=== PATIENT | female | born 1970 | race African-American/Black ===

== ENCOUNTER 2017-08-25 13:53 | Emergency (ER) | payer OTHER ==
[~2017-08-25] VITALS: Ht 177.8 cm; Wt 81.6 kg
[2017-08-25 14:36] LABS: Basophils # (auto) 0 uL; Basophils % (auto) 0.5 % (0.0-2.0); Eosinophils # (auto) 0 uL; Eosinophils % (auto) 0.1 % (0.0-7.0); Hematocrit 38.3 % (36.0-46.0); Hemoglobin 12.7 g/dL (12.2-16.2); Lymphocytes # (auto) 1.3 uL; Lymphocytes % (auto) 13.9 % (10.0-50.0); Mean Corpuscular Hemoglobin 31.2 pg (28.0-32.0); Mean Corpuscular Hgb Conc. 33.2 g/dL (32.0-36.0); Monocytes # (auto) 0.7 uL; Monocytes % (auto) 7.1 % (0.0-12.0); Neutrophils # (auto) 7.5 uL; Neutrophils % (auto) 78.4 % (37.0-80.0); Platelet Count (auto) 276 10^3/uL (140-450); Red Blood Cells 4.07 10^6/uL (4.0-5.20); Red Cell Distribution Width 13.2 % (11.8-14.3); White Blood Cell 9.6 10^3/uL (4.4-10.8)
[2017-08-25] MEDS ORDERED: MORPHINE SULFATE 4 MG/ML SYR/VIAL IV ONE ×2 (15:00→20:30)
[2017-08-25] MEDS ORDERED: TETANUS-DIPTH-ACEL PERTUSSIS 0.5ML SYRG IM ONE (15:00)
[2017-08-25] MEDS ORDERED: ONDANSETRON HCL 4 MG/2 ML VIAL IV ONE ×3 (15:00→20:30)
[2017-08-25 15:12] LABS: Albumin 3.6 g/dL (3.4-5.0); BUN/Creatinine Ratio 13.6; Calcium 8.3 mg/dL (8.5-10.1); Potassium 3.4 mmol/L (3.5-5.1); Total Protein 6.8 g/dL (6.4-8.2)
[2017-08-25] MEDS ORDERED: HYDROmorphone HCL 2 MG/ML VL IV ONE (16:30)
[2017-08-26] MEDS ORDERED: HYDROmorphone HCL 2 MG/ML VL IV ONE
[2017-08-26] MEDS ORDERED: ONDANSETRON HCL 4 MG/2 ML VIAL IV ONE
[2017-08-26 00:27] VITALS: BP 136/75
== END 2017-08-26 00:57 | disposition short-term general hospital (02) ==
LOC: ER 13:53
DX: S62.512A Displaced fracture of proximal phalanx of left thumb, initial encounter for closed fracture (principal); S80.02XA Contusion of left knee, initial encounter; I47.2 Ventricular tachycardia; Z95.810 Presence of automatic (implantable) cardiac defibrillator; Z95.0 Presence of cardiac pacemaker; V86.56XA Driver of dirt bike or motor/cross bike injured in nontraffic accident, initial encounter; Y93.89 Activity, other specified; Y99.8 Other external cause status; Y92.89 Other specified places as the place of occurrence of the external cause
CPT/HCPCS: 29125; 36415; 71010; 73110; 73130; 73560; 80053; 83735; 84484; 85025; 90471; 90715; 93005; 94761; 96374; 96375; 96376; 99291; J1170; J2270; J2405

== ENCOUNTER 2017-09-10 10:48 | Emergency (ER) | payer OTHER ==
[~2017-09-10] VITALS: Ht 170.2 cm; Wt 77.1 kg
[2017-09-10 11:54] LABS: Basophils # (auto) 0 uL; Basophils % (auto) 0.4 % (0.0-2.0); Eosinophils # (auto) 0 uL; Eosinophils % (auto) 0.3 % (0.0-7.0); Hematocrit 38.5 % (36.0-46.0); Lymphocytes # (auto) 1.2 uL; Lymphocytes % (auto) 15.9 % (10.0-50.0); Mean Corpuscular Hemoglobin 31.1 pg (28.0-32.0); Mean Corpuscular Hgb Conc. 33.7 g/dL (32.0-36.0); Monocytes # (auto) 0.4 uL; Monocytes % (auto) 5.8 % (0.0-12.0); Neutrophils # (auto) 5.7 uL; Neutrophils % (auto) 77.6 % (37.0-80.0); Platelet Count (auto) 370 10^3/uL (140-450); Red Blood Cells 4.18 10^6/uL (4.0-5.20); Red Cell Distribution Width 13.2 % (11.8-14.3); White Blood Cell 7.4 10^3/uL (4.4-10.8)
[2017-09-10 12:19] LABS: Albumin 3.7 g/dL (3.4-5.0); Bilirubin, Total 0.9 mg/dL (0.2-1.0); Calcium 8.4 mg/dL (8.5-10.1); Magnesium 2.2 mg/dL (1.6-2.6); Potassium 3.4 mmol/L (3.5-5.1)
[2017-09-10] MEDS ORDERED: SODIUM CHLORIDE 0.9% 1,000 ML IV ONE (12:19)
[2017-09-10 12:51] LABS: INR 1.08 (0.9-1.15); Partial Thromboplastin Time 29.3 sec (22.64-33.71); Prothrombin Time 11.8 sec (9.37-12.3)
[2017-09-10] MEDS ORDERED: LORazepam 2MG/ML-1ML VIAL ONE (14:01)
[2017-09-10] MEDS ORDERED: LORazepam 2MG/ML-1ML VIAL IV ONE ×2 (14:30→20:30)
[2017-09-10] MEDS ORDERED: POTASSIUM CHL 10% (20 MEQ/15ML) 15ml ORAL SOLN PO ONE (14:45)
[2017-09-10] MEDS ORDERED: IOHEXOL 350 MG/ML 100ML IJ ONE (15:19)
[2017-09-10] MEDS ORDERED: AMIODARONE HCL 200 MG TAB PO ONE (20:30)
[2017-09-10] MEDS ORDERED: traMADol HCL 50 MG TAB PO ONE (23:00)
[2017-09-11 00:59] VITALS: BP 118/70
== END 2017-09-11 01:12 | disposition short-term general hospital (02) ==
LOC: EDUNIT# 10:48 → ER 10:48 → EDBD 10:48 → ER 09-11 01:12
DX: T82.9XXA Unspecified complication of cardiac and vascular prosthetic device, implant and graft, initial encounter (principal); R00.0 Tachycardia, unspecified; E87.6 Hypokalemia; R79.89 Other specified abnormal findings of blood chemistry; I10 Essential (primary) hypertension; Z95.0 Presence of cardiac pacemaker; Z90.49 Acquired absence of other specified parts of digestive tract
CPT/HCPCS: 36415; 71046; 71275; 80053; 83735; 83880; 84443; 84484; 85025; 85379; 85610; 85730; 93005; 94761; 96361; 96374; 96376; 99285; J2060; J7030; Q9967